=== PATIENT | female | born 1960 | race Caucasian/White ===

== ENCOUNTER → 2016-10-06 | Outpatient (CLI) | payer BC ==
--- NOTE | 2016-10-07 10:12 | MY ---
EXAMINATION: Bilateral digital mammography utilizing CAD. HISTORY: Screening exam. Comparison is made to previous studies dated 05/06/2012, 03/18/2011, 009. FINDINGS: Bilateral heterogeneously dense breast tissue. No suspicious calcifications, masses or architectural distortions. No pathologic appearing lymph nodes, no abnormal skin thickening or nipple inversion. CAD highlighted regions appear normal at this time. IMPRESSION: BI-RADS category I - negative mammogram. Continued screening according to ACR-ACS guidelines beti jackson. THE FALSE-NEGATIVE RATE OF MAMMOGRAM IS APPROXIMATELY 10%. MANAGEMENT OF A PALPABLE ABNORMALITY MUST BE BASED UPON CLINICAL GROUNDS. SENSITIVITY FOR DETECTION OF ABNORMALITIES IN DENSE BREASTS IS LOW. NOTE: A letter will be sent to the patient regarding findings. [facility] -- EZRA Lezama [phone] - FAX [phone]
== END ==
LOC: MW.MAM 14:34
PROVIDERS: ATTEND Obstetrics & Gynecology
DX: Z12.31 Encounter for screening mammogram for malignant neoplasm of breast (principal)
CPT/HCPCS: G0202; G0202-26

== ENCOUNTER 2020-11-28 09:47 | Day surgery (SDC) | payer BC ==
[~2020-11-28 09:47] MED LIST: Lactated Ringers 1,000 ML IV SCH; Midazolam 1 MG/ML 2 ML SDV ONE; Propofol 200 MG/20 ML SDV ONE; fentaNYL 100 MCG/2 ML SDV ONE
--- NOTE | 2020-11-28 10:52 | PCM.PREANE ---
Preanesthetic Assessment - Anesthesia/Transfusion/Family Hx Anesthesia History: Prior Anesthesia Without Reaction Other Type of Anesthesia Reaction Comment: DENIES ANY PROBLEMS WITH ANESTHESIA Family History of Anesthesia Reaction: No Transfusion History: Prior Transfusion Without Reaction Type of Transfusion Reactions: Reports: Other (see below) Other Type of Transfusion Reaction: hx of iron transfusion - Review of Systems General: Weakness Pulmonary: Shortness of Breath Cardiovascular: Dyspnea on Exertion, Edema, Other (History of CHF) Gastrointestinal: Abdominal Pain Neurological: Numbness, Weakness - Physical Assessment NPO Status Date: 11/28/20 NPO Status Time: 00:00 Vital Signs: Last Vital Signs Temp 97.2 F 11/28/20 10:31 Pulse 74 11/28/20 10:31 Resp 16 11/28/20 10:31 BP 177/82 H 11/28/20 10:31 Pulse Ox 90 L 11/28/20 10:31 Height: 5 ft 1 in Weight: 223 lb ASA Class: 3 Mental Status: Alert & Oriented x3 Airway Class: Mallampati = 3 Dentition: Reports: Broken Tooth/Teeth Thyro-Mental Finger Breadths: 3 Mouth Opening Finger Breadths: 3 ROM/Head Extension: Limited/Partial Lungs: Decreased Breath Sounds - Allergies Allergies/Adverse Reactions: Allergies Allergy/AdvReac Type Severity Reaction Status Date / Time clindamycin Allergy Hives Verified 11/22/20 11:51 - Blood Blood Available: No - Acknowledgements Anesthesia Type Planned: General Anesthesia Pt an Appropriate Candidate for the Planned Anesthesia: Yes Alternatives and Risks of Anesthesia Discussed w Pt/Guardian: Yes Pt/Guardian Understands and Agrees with Anesthesia Plan: Yes PreAnesthesia Questionnaire HEENT History: Reports: Hard of Hearing, Other (See Below) Other HEENT History: wears glasses, ashlie hearing aids Cardiovascular History: Reports: Heart Murmur, Hypertension Other Cardiovascular History: occasional edema to lower extremities, states is rare, prescribed lasix as needed for this Respiratory History: Reports: Pulmonary Fibrosis, Other (See Below) Other Respiratory History: "[employer]" Gastrointestinal History: Reports: Other (See Below) Other Gastrointestinal History: occasional heartburn Genitourinary History: Reports: None WEATHER [place] History: Reports: None Musculoskeletal History: Reports: RA Neurological History: Reports: None Psychiatric History: Reports: Depression Endocrine/Metabolic History: Reports: Hypothyroidism, Obesity/BMI 30+ Hematologic History: Reports: None, Iron Deficiency Immunologic History: Reports: None Oncologic (Cancer) History: Reports: None Dermatologic History: Reports: None - Past Surgical History Head Surgeries/Procedures: Reports: None HEENT Surgical History: Reports: Cataract Surgery, Naso-Sinus Surgery, Tonsillectomy, Other (See Below) Other HEENT Surgeries/Procedures: sinus, tonsillectomy & uvulectomy to resolve sleep apnea Cardiovascular Surgical History: Reports: None Respiratory Surgical History: Reports: Other (See Below) Other Respiratory Surgeries/Procedures: lung biopsy and wash GI Surgical History: Reports: None Female Surgical History: Reports: None Endocrine Surgical History: Reports: None Neurological Surgical History: Reports: None Musculoskeletal Surgical History: Reports: Carpal Tunnel Oncologic Surgical History: Reports: None Dermatological Surgical History: Reports: None - SUBSTANCE USE Tobacco Use Status *Q: Never Tobacco User Days Per Week of Alcohol Use: 7 Number of Drinks Per Day: 1 Total Drinks Per Week: 7 - HOME MEDS Home Medications: Home Meds Hydroxychloroquine [Plaquenil] 200 mg PO BID 01/16/14 [History] Budesonide/Formoterol Fumarate [Symbicort 80-4.5 MCG] 2 inhalation INH BID 11/22/20 [History] Citalopram Hydrobromide [Celexa] 10 mg PO DAILY 11/22/20 [History] Furosemide 40 mg PO DAILY PRN 11/22/20 [History] Levothyroxine Sodium 88 mcg PO DAILY 11/22/20 [History] Losartan Potassium 50 mg PO DAILY 11/22/20 [History] Potassium Chloride 10 meq PO DAILY PRN 11/22/20 [History] - CURRENT (IN HOUSE) MEDS Current Meds: Current Medications Lactated Ringer's (Ringers, Lactated) 1,000 mls @ 125 mls/hr IV [facility]ED [facility] Last Admin: 11/28/20 10:41 Dose: 125 mls/hr Documented by: Discontinued Medications Fentanyl (Fentanyl 100 Mcg/2 Ml Sdv) Confirm Administered Dose 100 mcg .ROUTE .STK-MED ONE Stop: 11/28/20 07:00 Midazolam HCl (Midazolam 1 Mg/Ml 2 Ml Sdv) Confirm Administered Dose 2 mg .ROUTE .STK-MED ONE Stop: 11/28/20 07:00 Propofol (Propofol 200 Mg/20 Ml Sdv) Confirm Administered Dose 200 mg .ROUTE .STK-MED ONE Stop: 11/28/20 07:00
--- NOTE | 2020-11-28 12:15 | PCM.OPNOTE ---
- General Post-Op/Procedure Note Date of Surgery/Procedure: 11/28/20 Operative Procedure(s): Colonoscopy. polypectomy Findings: Colon polyp/growth diverticulosis dictation number [id number] Pre Op Diagnosis: positive cologuard Post-Op Diagnosis: Colon polyp/growth. diverticulosis Primary Surgeon: Brenden Hahn Pathology: colon polyp Complications: None Condition: Good
--- NOTE | 2020-11-28 12:22 | PCM.POSTAN ---
POST ANESTHESIA ASSESSMENT - MENTAL STATUS Mental Status: Alert, Oriented - VITAL SIGNS Vital Signs: Last Vital Signs Temp 97.2 F 11/28/20 10:31 Pulse 73 11/28/20 12:16 Resp 22 H 11/28/20 12:16 BP 143/90 H 11/28/20 12:16 Pulse Ox 93 L 11/28/20 12:16 - RESPIRATORY Respiratory Status: Respiratory Rate WNL, Airway Patent, O2 Saturation Stable, Supplemental Oxygen - CARDIOVASCULAR CV Status: Pulse Rate WNL, Blood Pressure Stable - GASTROINTESTINAL GI Status: No Symptoms - POST OP HYDRATION Hydration Status: Adequate & Stable
--- NOTE | 2020-11-28 20:25 | OR ---
SURGEON: ISAIAS ARGUELLO MD DATE OF PROCEDURE: 11/28/2020 PREOPERATIVE DIAGNOSIS: Positive Cologuard. POSTOPERATIVE DIAGNOSES: 1. Diverticulosis. 2. A small polyp at 90 cm. PROCEDURE PERFORMED: 1. Colonoscopy. 2. Cold biopsy polypectomy. PRIMARY SURGEON: Isaias Arguello MD ANESTHESIA: With anesthesiologist. EXTENT: Colonoscopy to the cecum. BOWEL PREP: Very good. LIMITATIONS: None. REASON FOR PROCEDURE: The patient is a pleasant 60-year-old female. This would be her first colonoscopy. She denies any family history of colon cancer. Denies any blood in her stool. She does have a positive Cologuard. PROCEDURE IN DETAIL: Physical exam was performed. The major risks and benefits associated with the procedure were explained to the patient in detail. The patient verbalized understanding and was in agreement with the same. The patient was then connected to the appropriate monitoring devices, and IV was started. EKG, pulse oximetry, blood pressure, and capnography were monitored throughout the entire procedure. Oxygen and sedation were provided by the anesthesiologist. The patient was placed in the left lateral decubitus position. Sedation was begun. After adequate sedation was achieved, a rectal exam was performed. No rectal masses or polyps felt. She did have some noninflamed external hemorrhoidal skin tissue. A well-lubricated Olympus colonoscope was inserted into the rectum and advanced under direct visualization to the level of the cecum. Cecum was identified by both visual and anatomic landmarks. Photographs were taken of the cecal cap. Scope was then slowly withdrawn in a circular fashion looking at the color, texture, anatomy, and integrity of mucosa from the cecum to the anal canal. The patient did have some light liquid stool which was suctioned and irrigated out for a good look at the mucosa. The patient had a little white polypoid growth right about 90 cm that would not wash off. Looked like maybe a plaque or food particle that would not wash off with irrigation but did not seem stuck to the mucosa, so potentially a polyp, so it was taken out with the biopsy forceps and sent to Pathology. The scope was continued to be withdrawn. The patient did have some diverticulosis throughout the sigmoid colon. Scope was withdrawn to the rectum. Scope was completely removed. Procedure was terminated. ENDOSCOPIC DIAGNOSES: 1. Diverticulosis. 2. Small polyp growth right at 90 cm. RECOMMENDATIONS: Followup colonoscopy will depend on pathology, but most likely, will need another one in 5-10 years, sooner if she develops signs and symptoms such as change in bowel habits or blood in her stool. MONIK CONNELLY /[id number]
== END 2020-11-28 13:21 | disposition home or self-care (01) ==
LOC: MW.SDS 09:47
PROVIDERS: ATTEND Surgery
DX: K63.5 Polyp of colon (principal); K57.30 Diverticulosis of large intestine without perforation or abscess without bleeding; K64.4 Residual hemorrhoidal skin tags; J84.89 Other specified interstitial pulmonary diseases; I50.9 Heart failure, unspecified; I11.0 Hypertensive heart disease with heart failure; E03.9 Hypothyroidism, unspecified; E66.9 Obesity, unspecified; M06.9 Rheumatoid arthritis, unspecified; Z88.1 Allergy status to other antibiotic agents; Z79.899 Other long term (current) drug therapy; Z79.890 Hormone replacement therapy; Z68.41 Body mass index [BMI] 40.0-44.9, adult
CPT/HCPCS: 45380; 88305; J2250; J2704; J3010; J7120; 00811

== ENCOUNTER 2022-05-25 22:14 | Inpatient (IN) | payer BC ==
[2022-05-25] MEDS ORDERED: Sodium Chloride 0.9% 10 ML Syringe FLUSH PRN (22:27)
[2022-05-25] MEDS ORDERED: Sodium Chloride 0.9% 2.5 ML Syringe FLUSH PRN (22:27)
[2022-05-25] MEDS ORDERED: Albuterol/Ipratropium 3.0-0.5 MG/3 ML Neb Soln NEB ONE (22:28)
[2022-05-25] MEDS ORDERED: methylPREDNISolone Sodium Succinate 125 MG/2 ML SDV IVPUSH ONE (22:28)
[2022-05-25] MEDS ORDERED: Furosemide 40 MG/4 ML VIAL IVPUSH ONE (22:29)
[2022-05-25 23:12] LABS: CARBON DIOXIDE,CO2 41.4 mmol/L (21.0-32.0); POTASSIUM,K 4.5 mmol/L (3.5-5.1)
[2022-05-25 23:13] LABS: CORONAVIRUS COVID-19 NAA NEGATIVE (NEGATIVE); INFLUENZA A NAA NEGATIVE (NEGATIVE); INFLUENZA B NAA NEGATIVE (NEGATIVE); RESPIRATORY SYNCYTIAL VIR NAA NEGATIVE (NEGATIVE)
[2022-05-25] MEDS ORDERED: Piperacillin/Tazobactam 3.375 GM in Sodium Chloride 0.9% 50 ML IV ONE (23:33)
[2022-05-26] MEDS ORDERED: VANCOmycin 2 GM/400 ML 400 ML IV ONE
[2022-05-26] MEDS ORDERED: Sodium Chloride 0.9% 1,000 ML IV ONE ×4 (00:08→08:29)
[2022-05-26] MEDS ORDERED: Piperacillin/Tazobactam 4.5 GM in Sodium Chloride 0.9% 100 ML IV SCH (02:30)
[2022-05-26] MEDS: Azithromycin 500 MG in Sodium Chloride 0.9% 250 ML IV SCH (02:45)
[2022-05-26] MEDS: Enoxaparin 40 MG/0.4 ML Syringe SUBCUT SCH (02:55)
[2022-05-26] MEDS: Sulfamethoxazole/Trimethoprim 200-40 MG/5 ML Susp ML (473 ML Bottle) PO SCH ×3 (04:19→18:08)
[2022-05-26] MEDS ORDERED: Budesonide/Formoterol 160-4.5 MCG/Puff 6 GM Inhaler INH SCH ×2 (06:00→11:30)
[2022-05-26] MEDS: Piperacillin/Tazobactam 4.5 GM in Sodium Chloride 0.9% 100 ML IV SCH ×3 (06:11→17:26)
[2022-05-26 06:22] LABS: POTASSIUM,K 4.2 mmol/L (3.5-5.1)
[2022-05-26] MEDS ORDERED: 50% Dextrose in Water 50 ML Syringe IVPUSH PRN (08:13)
[2022-05-26] MEDS ORDERED: Glucagon,Human Recombinant 1 MG Vial IM PRN (08:13)
[2022-05-26] MEDS: Levothyroxine 88 MCG Tab PO SCH (08:23)
[2022-05-26] MEDS: Rosuvastatin 10 MG Tab PO SCH (08:23)
[2022-05-26] MEDS: Hydroxychloroquine 200 MG Tab PO SCH ×2 (08:35→21:11)
[2022-05-26] MEDS ORDERED: predniSONE 10 MG Tab PO SCH (09:00)
[2022-05-26] MEDS ORDERED: guaiFENesin/Dextromethorphan 100-10 MG/5 ML Soln 10 ML Cup PO PRN (09:07)
[2022-05-26] MEDS: Pantoprazole 40 MG Tab.CR PO SCH (09:18)
[2022-05-26] MEDS: Albuterol/Ipratropium 3.0-0.5 MG/3 ML Neb Soln NEB SCH ×4 (09:18→21:43)
[2022-05-26] MEDS: Acetaminophen 325 MG Tab PO PRN ×2 (11:43→18:56)
[2022-05-26] MEDS: methylPREDNISolone Sodium Succinate 125 MG/2 ML SDV IVPUSH SCH ×3 (11:43→22:50)
[2022-05-26] MEDS: Insulin Aspart 100 Units/ML 3 ML Pen SUBCUT SCH ×2 (11:50→17:24)
[2022-05-26] MEDS: BUDESONIDE INH SCH ×2 (15:16→21:11)
[2022-05-26] MEDS: FORMOTEROL INH SCH ×2 (15:16→21:11)
[2022-05-26] MEDS: VANCOmycin 1.5 GM/300 ML 1.5 GM in Premix Bag 1 BAG IV SCH (21:11)
[2022-05-27] MEDS: Piperacillin/Tazobactam 4.5 GM in Sodium Chloride 0.9% 100 ML IV SCH ×2 (00:20→05:10)
[2022-05-27] MEDS: Azithromycin 500 MG in Sodium Chloride 0.9% 250 ML IV SCH (01:29)
[2022-05-27] MEDS: Sulfamethoxazole/Trimethoprim 200-40 MG/5 ML Susp ML (473 ML Bottle) PO SCH ×3 (02:55→18:06)
[2022-05-27] MEDS: Albuterol/Ipratropium 3.0-0.5 MG/3 ML Neb Soln NEB SCH ×6 (02:55→21:59)
[2022-05-27] MEDS: Enoxaparin 40 MG/0.4 ML Syringe SUBCUT SCH (02:55)
[2022-05-27] MEDS: methylPREDNISolone Sodium Succinate 125 MG/2 ML SDV IVPUSH SCH ×4 (05:09→22:00)
[2022-05-27 06:24] LABS: CARBON DIOXIDE,CO2 33.1 mmol/L (21.0-32.0); POTASSIUM,K 3.9 mmol/L (3.5-5.1)
[2022-05-27] MEDS: Insulin Aspart 100 Units/ML 3 ML Pen SUBCUT SCH ×3 (08:05→17:32)
[2022-05-27] MEDS: Levothyroxine 88 MCG Tab PO SCH (08:22)
[2022-05-27] MEDS: Acetaminophen 325 MG Tab PO PRN ×3 (08:22→20:46)
[2022-05-27] MEDS: Rosuvastatin 10 MG Tab PO SCH (08:22)
[2022-05-27] MEDS: Pantoprazole 40 MG Tab.CR PO SCH (08:23)
[2022-05-27] MEDS: Hydroxychloroquine 200 MG Tab PO SCH ×2 (08:24→20:30)
[2022-05-27] MEDS: BUDESONIDE INH SCH ×2 (08:24→20:31)
[2022-05-27] MEDS: FORMOTEROL INH SCH ×2 (08:24→20:31)
[2022-05-27 09:07] LABS: BORDETELLA PARAPERT IS1001 Not Detected (Not Detected)
[2022-05-27] MEDS ORDERED: Albumin 5% 500 ML IV ONE ×3 (13:45→18:30)
[2022-05-27] MEDS: Cefepime 2 GM in Premix Bag 1 BAG IV SCH (13:54)
[2022-05-27] MEDS: VANCOmycin 1.5 GM/300 ML 1.5 GM in Premix Bag 1 BAG IV SCH (20:38)
[2022-05-27] MEDS ORDERED: Loperamide 2 MG Cap PO ONE (21:16)
[2022-05-27] MEDS ORDERED: Sodium Chloride 0.9% 250 ML IV SCH (22:30)
[2022-05-28] MEDS: Enoxaparin 40 MG/0.4 ML Syringe SUBCUT SCH (01:56)
[2022-05-28] MEDS: Albuterol/Ipratropium 3.0-0.5 MG/3 ML Neb Soln NEB SCH ×6 (01:56→21:31)
[2022-05-28] MEDS: Sulfamethoxazole/Trimethoprim 200-40 MG/5 ML Susp ML (473 ML Bottle) PO SCH ×3 (02:01→18:23)
[2022-05-28] MEDS: Azithromycin 500 MG in Sodium Chloride 0.9% 250 ML IV SCH (02:02)
[2022-05-28] MEDS: Acetaminophen 325 MG Tab PO PRN ×4 (02:57→22:21)
[2022-05-28] MEDS: methylPREDNISolone Sodium Succinate 125 MG/2 ML SDV IVPUSH SCH ×4 (05:08→23:26)
[2022-05-28] MEDS: Levothyroxine 88 MCG Tab PO SCH (06:51)
[2022-05-28] MEDS: Pantoprazole 40 MG Tab.CR PO SCH (06:51)
[2022-05-28] MEDS: Insulin Aspart 100 Units/ML 3 ML Pen SUBCUT SCH ×3 (07:45→17:44)
[2022-05-28 08:02] LABS: CARBON DIOXIDE,CO2 30.7 mmol/L (21.0-32.0); POTASSIUM,K 3.6 mmol/L (3.5-5.1)
[2022-05-28] MEDS: Rosuvastatin 10 MG Tab PO SCH (08:06)
[2022-05-28] MEDS: Hydroxychloroquine 200 MG Tab PO SCH ×2 (08:07→20:36)
[2022-05-28] MEDS ORDERED: Loperamide 2 MG Cap PO ONE (09:12)
[2022-05-28] MEDS: BUDESONIDE INH SCH ×2 (10:04→20:36)
[2022-05-28] MEDS: FORMOTEROL INH SCH ×2 (10:04→20:36)
[2022-05-28] MEDS: Cefepime 2 GM in Premix Bag 1 BAG IV SCH ×3 (11:17)
[2022-05-28] MEDS ORDERED: Ondansetron 4 MG/2 ML SDV IVPUSH PRN (12:08)
[2022-05-28] MEDS: Acidophilus with Citrus Pectin/L.acidophilus Tab PO SCH (21:31)
[2022-05-29] MEDS: Albuterol/Ipratropium 3.0-0.5 MG/3 ML Neb Soln NEB SCH ×2 (02:40→06:32)
[2022-05-29] MEDS: Enoxaparin 40 MG/0.4 ML Syringe SUBCUT SCH (02:40)
[2022-05-29] MEDS: Sulfamethoxazole/Trimethoprim 200-40 MG/5 ML Susp ML (473 ML Bottle) PO SCH ×2 (02:41→11:20)
[2022-05-29] MEDS: Azithromycin 500 MG in Sodium Chloride 0.9% 250 ML IV SCH (02:42)
[2022-05-29] MEDS: Acetaminophen 325 MG Tab PO PRN ×2 (04:11→12:04)
[2022-05-29] MEDS: methylPREDNISolone Sodium Succinate 125 MG/2 ML SDV IVPUSH SCH ×2 (04:11→11:20)
[2022-05-29] MEDS: Levothyroxine 88 MCG Tab PO SCH (06:31)
[2022-05-29] MEDS: Pantoprazole 40 MG Tab.CR PO SCH (06:31)
[2022-05-29 06:46] LABS: CARBON DIOXIDE,CO2 31.3 mmol/L (21.0-32.0); POTASSIUM,K 3.6 mmol/L (3.5-5.1)
[2022-05-29] MEDS: Insulin Aspart 100 Units/ML 3 ML Pen SUBCUT SCH ×2 (07:42→11:32)
[2022-05-29] MEDS: Hydroxychloroquine 200 MG Tab PO SCH (08:08)
[2022-05-29] MEDS: Rosuvastatin 10 MG Tab PO SCH (08:08)
[2022-05-29] MEDS: Acidophilus with Citrus Pectin/L.acidophilus Tab PO SCH (08:08)
[2022-05-29] MEDS ORDERED: Cefepime 2 GM in Sodium Chloride 0.9% 50 ML IV SCH (12:00)
[2022-05-29] MEDS ORDERED: Furosemide 40 MG/4 ML VIAL IVPUSH ONE (12:52)
== END 2022-05-29 14:40 | DRG 139 ==
LOC: MW.ED 22:14 → MW.ICU 05-26 00:07
PROVIDERS: ADMIT Internal Medicine; ATTEND Internal Medicine
DX: J18.9 Pneumonia, unspecified organism (principal); J96.22 Acute and chronic respiratory failure with hypercapnia; J96.21 Acute and chronic respiratory failure with hypoxia; I24.8 Other forms of acute ischemic heart disease; J84.116 Cryptogenic organizing pneumonia; M06.9 Rheumatoid arthritis, unspecified; N17.9 Acute kidney failure, unspecified; I95.9 Hypotension, unspecified; Z20.822 Contact with and (suspected) exposure to COVID-19; I10 Essential (primary) hypertension; E78.5 Hyperlipidemia, unspecified; F32.A Depression, unspecified; E03.9 Hypothyroidism, unspecified; E66.9 Obesity, unspecified; Z68.41 Body mass index [BMI] 40.0-44.9, adult; Z98.42 Cataract extraction status, left eye; Z98.41 Cataract extraction status, right eye; Z79.52 Long term (current) use of systemic steroids; Z97.3 Presence of spectacles and contact lenses; Z97.4 Presence of external hearing-aid; Z90.89 Acquired absence of other organs; Z98.890 Other specified postprocedural states
CPT/HCPCS: 0241U; 36415; 36600; 51702; 71045; 71045-26; 71250; 71250-26; 80048; 80053; 80202; 82803; 82947; 83605; 83735; 83880; 84100; 84484; 85025; 85379; 87040; 87154; 87324; 87486; 87581; 87633; 87641; 87798; 93005; 94640; A9270-GY; J0456; J0692; J1650; J1815-GY; J1940; J2405; J2543; J2930; J3370; J3490; J7030; J7050; J7620-GY; P9045